=== PATIENT | male | born 1985 | race Caucasian/White ===

== ENCOUNTER 2017-09-27 13:08 | Emergency (ER) | payer SELFPAY ==
[2017-09-27 13:23] VITALS: RESP 16; TEMP 97
[2017-09-27] MEDS ORDERED: ALBUTEROL 3 ML DEYVIAL IH ONE (13:58)
[2017-09-27] MEDS ORDERED: IBUPROFEN 200 MG TAB PO ONE (13:58)
--- NOTE | 2017-09-27 14:05 | EDPHY ---
H & P Stated Complaint: SOB, CP and coughing since thsi morning Time Seen by Provider: 09/27/17 13:46 HPI/ROS: Chief Complaint: Cough, shortness of breath, chest pain HPI: 32-year-old male smoker with no significant medical history presenting after waking up today with pain when he coughs and mildly when he takes a deep breath. It is not exertional. Cough is dry and nonproductive. No fevers or chills. No recent ill exposures. No nausea or vomiting. Does have some associated mild shortness of breath. No family history of coronary artery disease. No recent travel. No leg pain or swelling. ROS: 10 point Review of Systems is negative except as noted in the HPI. PMH: Denies Social History: Positive smoking, positive alcohol, occasional marijuana Family History: non-contributory Physical Exam: Gen: Awake, Alert, No Distress HEENT: Nose: no rhinorrhea Eyes: PERRLA, EOMI Mouth: Moist mucosa Neck: Supple, no JVD Chest: nontender, mild diffuse expiratory wheeze, no focal rales or rhonchi Heart: S1, S2 normal, no murmur Abd: Soft, non-tender, no guarding Back: no CVA tenderness, no midline tenderness Ext: no edema, non-tender Skin: no rash Neuro: CN II-XII intact, Sensation grossly intact, Strength 5/5 in bilateral upper and lower extremities - Personal History Current Tetanus/Diphtheria Vaccine: Yes Current Tetanus Diphtheria and Acellular Pertussis (TDAP): Yes Tetanus Vaccine Date: 2017 - Medical/Surgical History Hx Asthma: No Hx Chronic Respiratory Disease: No Hx Diabetes: No Hx Cardiac Disease: Yes Hx Renal Disease: No Hx Cirrhosis: No Hx Alcoholism: No Hx HIV/AIDS: No Hx Splenectomy or Spleen Trauma: No Other PMH: [place] 4 years ago, doesn't know mif he has stents - Social History Smoking Status: Current every day smoker Constitutional: Initial Vital Signs Temperature (C) 36.1 C 09/27/17 13:08 Heart Rate 97 09/27/17 13:08 Respiratory Rate 16 09/27/17 13:08 Blood Pressure 142/88 H 09/27/17 13:08 O2 Sat (%) 94 09/27/17 13:08 O2 Delivery Mode Room Air Allergies/Adverse Reactions: No Known Allergies Allergy (Verified 09/27/17 13:19) Home Medications: Medication Instructions Recorded AZITHROMYCIN [Z-PACK] 250 mg PO DAILY #6 tab 09/27/17 Medical Decision Making - Diagnostics Imaging Results: Imaging Impressions Chest X-Ray 09/27/17 13:58 Impression: Central bronchitis, otherwise negative chest.. Imaging: I viewed and interpreted images myself ED Course/Re-evaluation: Patient is improved after albuterol neb and ibuprofen. He is not hypoxemic. He is not tachycardic. Chest x-ray consistent with bronchitis. Because he is a smoker his wheezing will start him on antibiotics. Albuterol inhaler cough. He will follow up as an outpatient. - Data Points Medications Given: Discontinued Medications Albuterol (Proventil Neb) 3 ml IH EDNOW ONE Stop: 09/27/17 13:59 Last Admin: 09/27/17 14:22 Dose: 3 ml Ibuprofen (Motrin) 400 mg PO EDNOW ONE Stop: 09/27/17 13:59 Last Admin: 09/27/17 14:22 Dose: 400 mg Departure - Departure Disposition: Home, Routine, Self-Care Clinical Impression: Acute bronchitis Condition: Good Instructions: Acute Bronchitis (ED), Bronchospasm (ED) Additional Instructions: You may use the albuterol inhaler 2 puffs every 4 hr. Always use a spacer when you use your inhaler. Alternate acetaminophen (1000 mg) with ibuprofen (400 mg) every 4 hours as needed for fevers, chills, aches or pains. Please take your full course of antibiotics. Follow up with primary care physician in 2 days for further evaluation. Return to the emergency department for increasing shortness of breath, worsening cough, or any other concerns. Referrals: Dayna Gould [place] [[facility] [place] - As per Instructions Prescriptions: AZITHROMYCIN [Z-PACK] 250 mg PO DAILY #6 tab
[2017-09-27] MEDS ORDERED: ATROPINE SULFATE 1 MG/10 ML SYR ONE (14:59)
[2017-09-27] MEDS ORDERED: AZITHROMYCIN 250 MG TAB PO ONE (15:59)
[2017-09-27] MEDS ORDERED: ALBUTEROL INH PREPACK MDI TAKEHOME ONE (15:59)
[2017-09-27 16:24] VITALS: BP 119/77; PULSE 100; O2SAT 96
== END 2017-09-27 16:23 | disposition home or self-care (01) ==
LOC: EDBD 13:08
DX: J20.9 Acute bronchitis, unspecified (principal); F17.200 Nicotine dependence, unspecified, uncomplicated; I25.2 Old myocardial infarction
CPT/HCPCS: J0461; J7613

== ENCOUNTER 2017-09-30 11:56 | Inpatient (IN) | payer MEDICAID ==
[2017-09-30] MEDS ORDERED: ACETAMINOPHEN 500 MG TAB ONE (12:30)
[2017-09-30] MEDS ORDERED: IPRATROPIUM/ALBUTEROL 3 ML DEYVIAL ONE (12:30)
[2017-09-30] MEDS ORDERED: IPRATROPIUM/ALBUTEROL 3 ML DEYVIAL IH ONE (12:46)
[2017-09-30] MEDS ORDERED: ACETAMINOPHEN 500 MG TAB PO ONE (12:46)
[2017-09-30 12:57] LABS: PLATELET COUNT 153 10^3/uL (150-400)
[2017-09-30] MEDS ORDERED: ALBUTEROL 3 ML DEYVIAL IH ONE (13:16)
[2017-09-30] MEDS ORDERED: methylPREDNISolone SOD SUCC 125 MG/2 ML VIAL IVP ONE (13:16)
--- NOTE | 2017-09-30 13:19 | EDPHY ---
H & P Stated Complaint: cough, sob & "lungs on fire" continue--recent pna dx has not taken doxy rx Time Seen by Provider: 09/30/17 12:52 HPI/ROS: CHIEF COMPLAINT: Cough, shortness of breath HISTORY OF PRESENT ILLNESS: The patient is a homeless 32 y/o male complaining of shortness of breath and cough for the last few days. He was evaluated here on 09/27/17 for the same symptoms and was diagnosed with pneumonia. He was discharged with a doxycycline script, but has not taken any doses yet. He has been using the albuterol inhaler "10 times per day to be able to breath." He has a productive cough with phlegm ranging between yellow, green, and clear in color. He also complains of pleuritic midthoracic back pain in a horizontal band across his back and pleuritic chest pain that feels "like my lungs are on fire" every time he breaths or coughs. He had an episode of diarrhea this morning, a mild sore throat, and reports a fever of 100.4F. He denies respiratory disease, cardiac disease, or blood clot history. No flu vaccination this season. No chills, palpitations, vomiting, diarrhea, urinary complaints, headache, lightheadedness, leg swelling. REVIEW OF SYSTEMS: Aside from elements discussed in the HPI, a comprehensive 10-point review of systems was reviewed and is negative. PAST MEDICAL HISTORY: Denies SOCIAL HISTORY: Stopped smoking a couple days ago, transient, unemployed. VITAL SIGNS: Reviewed by me. 89% on room air. GENERAL: Well-developed, well-nourished, resting comfortably in no respiratory distress. Malodorous. HEENT: Atraumatic. Eyes: No icterus, no injection. Mouth: moist mucous membranes. No erythema or lesions. Neck: supple with no adenopathy. LUNGS: Diminished breath sounds bilaterally, wheezy cough, no wheezes when breathing normally. No rhonchi or rales. CARDIAC: Regular rate and rhythm, no rubs, murmurs or gallops. ABDOMEN: Soft, nontender, nondistended, bowel sounds normal. BACK: No CVA tenderness. No midline tenderness. EXTREMITIES: No trauma. No edema. Range of motion is normal throughout. NEURO: Alert and oriented, grossly nonfocal. SKIN: Warm and dry, no rash. PSYCHIATRIC: Normal mentation, no agitation. Portions of this note were transcribed by a ophthalmic medical assistant. I personally performed a history, physical exam, medical decision making, and confirmed accuracy of information the transcribed note. - Personal History Current Tetanus/Diphtheria Vaccine: Unsure Current Tetanus Diphtheria and Acellular Pertussis (TDAP): Unsure Tetanus Vaccine Date: 2017 - Medical/Surgical History Hx Asthma: No Hx Chronic Respiratory Disease: No Hx Diabetes: No Hx Cardiac Disease: No Hx Renal Disease: No Hx Cirrhosis: No Hx Alcoholism: No Hx HIV/AIDS: No Hx Splenectomy or Spleen Trauma: No Other PMH: bronchitis/pna 10/01. otherwise denies pmh - Social History Smoking Status: Former smoker Constitutional: Initial Vital Signs Temperature (C) 37.3 C 09/30/17 12:12 Heart Rate 88 09/30/17 12:12 Respiratory Rate 18 09/30/17 12:12 Blood Pressure 102/72 09/30/17 12:12 O2 Sat (%) 89 L 09/30/17 12:12 O2 Delivery Mode Room Air O2 (L/minute) 2 Allergies/Adverse Reactions: promethazine [From Phenergan] Allergy (Verified 09/30/17 15:18) Unknown Home Medications: Medication Instructions Recorded Oseltamivir Phosphate [Tamiflu 75 75 mg PO BIDMEAL #7 cap 10/02/17 mg (*)] guaiFENesin [Mucinex 600 MG (*)] 600 mg PO BID #10 tab.er 10/02/17 predniSONE 40 mg PO DAILY #4 tablet 10/02/17 Medical Decision Making - Diagnostics Imaging Results: CXR: Impression: Interstitial pneumonitis consistent with viral infection. Results called to Dr. Sands. Dictated By: Misha Ruiz MD Imaging: I viewed and interpreted images myself ED Course/Re-evaluation: This is a 32 y/o male with recent diagnosis of pneumonia complaining of persistent cough, dyspnea, and pleuritic back pain. Breath sounds are diminished bilaterally with a wheezy cough. Presentation consistent with URI and possibly influenza. Plan for IV, labs, flu swab, chest x-ray, and symptom management. Duo neb, 30mg IV Toradol, 125mg IV Solumedrol, 1000mg PO Tylenol administered. Flu A positive. Chest x-ray: diffuse pneumonitis. Albuterol neb administered. Reassessed patient and discussed work up. He desaturated to 86% when taken off O2 during our discussion. Patient is currently homeless and has not had success managing symptoms out of the hospital. I recommended admission for hypoxemia and flu. Spoke with hospitalist service. Dr. Morrell accepts admission to Med-Surg. Differential Diagnosis: Differential diagnosis for the patient's symptoms complex was considered including but not limited to viral versus bacterial bronchitis, asthma, influenza, upper respiratory infection, lower respiratory infection,asthma exacerbation, and bronchospasm. - Data Points Laboratory Results: Laboratory Results 09/30/17 12:05 09/30/17 12:05 Medications Given: Discontinued Medications Acetaminophen (Tylenol) 1,000 mg PO EDNOW ONE Stop: 09/30/17 12:47 Last Admin: 09/30/17 12:46 Dose: Not Given Acetaminophen (Tylenol) 650 mg PO Q4HRS PRN PRN Reason: Pain, Mild/Fever, Can Take PO Stop: 03/29/18 15:01 Last Admin: 10/01/17 19:28 Dose: 650 mg Albuterol (Proventil Neb) 3 ml IH EDNOW ONE Stop: 09/30/17 13:17 Last Admin: 09/30/17 13:26 Dose: 3 ml Albuterol/Ipratropium (Duoneb) 3 ml IH EDNOW ONE Stop: 09/30/17 12:47 Last Admin: 09/30/17 12:50 Dose: 3 ml Guaifenesin (Mucinex) 600 mg PO BID ATA Stop: 03/29/18 20:59 Last Admin: 10/02/17 09:33 Dose: 600 mg Sodium Chloride (Ns) 1,000 mls @ 100 mls/hr IV CONT ATA Stop: 10/01/17 01:14 Last Admin: 09/30/17 15:28 Dose: 1,000 mls Ketorolac Tromethamine (Toradol) 30 mg IVP EDNOW ONE Stop: 09/30/17 13:37 Last Admin: 09/30/17 13:58 Dose: 30 mg Ketorolac Tromethamine (Toradol) 15 mg IVP Q6HRS PRN PRN Reason: Pain, Breakthrough Stop: 10/06/17 00:00 Last Admin: 10/01/17 19:28 Dose: 15 mg Methylprednisolone Sodium Succinate (Solu-Medrol) 125 mg IVP EDNOW ONE Stop: 09/30/17 13:17 Last Admin: 09/30/17 13:26 Dose: 125 mg Oseltamivir Phosphate (Tamiflu) 75 mg PO BIDMEAL [facility] Stop: 10/04/17 18:01 Last Admin: 09/30/17 15:27 Dose: 75 mg Oseltamivir Phosphate (Tamiflu) 75 mg PO BIDMEAL [facility] Stop: 10/04/17 18:01 Last Admin: 10/02/17 09:33 Dose: 75 mg Prednisone (Prednisone) 40 mg PO DAILY [facility] Stop: 03/30/18 08:59 Last Admin: 10/02/17 09:33 Dose: 40 mg Departure - Departure Disposition: [facility] Clinical Impression: Influenza A, Hypoxemia, Cough Condition: Good Report Scribed for: Anisa Sands Report Scribed by: Taniya Antunez Date of Report: 09/30/17 Time of Report: 13:19
[2017-09-30] MEDS ORDERED: KETOROLAC 30 MG/1 ML SDV IVP ONE (13:36)
[2017-09-30] MEDS ORDERED: ONDANSETRON 4 MG/2 ML VIAL IVP PRN (15:02)
[2017-09-30] MEDS ORDERED: GUAIFENESIN/DM 10 ML UDCUP PO PRN (15:02)
[2017-09-30] MEDS ORDERED: ONDANSETRON DISINTEGRATING 4 MG TAB PO PRN (15:02)
[2017-09-30] MEDS ORDERED: ALBUTEROL 3 ML DEYVIAL IH PRN (15:02)
[2017-09-30] MEDS ORDERED: OSELTAMIVIR PHOSPHATE 75 MG CAP PO SCH (15:09)
[2017-09-30] MEDS ORDERED: NS 1,000 ML IV SCH (15:15)
[2017-09-30] MEDS: ACETAMINOPHEN 325 MG TAB PO PRN (19:36)
[2017-09-30] MEDS: KETOROLAC 15 MG/1 ML SDV IVP PRN (19:37)
--- NOTE | 2017-09-30 22:03 | GHP ---
[f rep st] HISTORY AND PHYSICAL DATE OF ADMISSION: 09/30/2017 CHIEF COMPLAINT: Cough and shortness of breath. HISTORY OF PRESENT ILLNESS: The patient is a 32-year-old homeless male who presents to the emergency department with cough and shortness of breath. He reports subjective fevers. His symptoms started approximately 3 days ago, at which time he was evaluated in the emergency department and diagnosed with pneumonia. He was discharged with oral doxycycline, but he did not fill this prescription. He has been frequently using an albuterol inhaler, although this has not significantly improved his symptoms. He complains of productive cough with associated shortness of breath and burning in his lungs. In the emergency department, he had a positive influenza test, and he was mildly hypoxemic at 89% on room air. He is admitted to the hospital for further management. PAST MEDICAL HISTORY: Patient denies any past medical problems. MEDICATIONS: Doxycycline and albuterol recently prescribed. Otherwise, no chronic medications. FAMILY HISTORY: Reviewed and noncontributory. SOCIAL HISTORY: Patient is homeless. He was most recently in [place], [place] , and somehow wound up in [place], where he has been seeking homeless services and is currently staying at [facility]. He states he can sleep there at night, but cannot stay there during the daytime. He quit smoking 5 days ago. REVIEW OF SYSTEMS: A 10-point review of systems was performed and was negative except as per HPI. OBJECTIVE: VITAL SIGNS: Temperature is 36.8, blood pressure 120/73, heart rate 87, respiratory rate 18, he is 90% on room air. GENERAL: The patient is awake, alert, oriented, no acute distress. HEENT: Head is atraumatic, normocephalic. Pupils equal, round, and reactive to light. Extraocular muscles are intact. Oropharynx is clear. Mucous membranes are moist. NECK: Supple. There is no JVD. HEART: Regular rate and rhythm without murmur. LUNGS: Diffuse expiratory wheezes with decreased air exchange. ABDOMEN: Soft , nondistended, nontender. Normoactive bowel sounds. EXTREMITIES: Without cyanosis, clubbing or edema. NEUROLOGIC: Grossly nonfocal. LABORATORY DATA: CBC is normal. Basic metabolic panel is remarkable for chloride of 95; otherwise normal electrolytes, normal creatinine of 1.0. Nasal influenza A is positive. Chest x-ray is personally reviewed and interpreted. This reveals bilateral diffuse interstitial disease, likely consistent with viral etiology. ASSESSMENT/PLAN: The patient is a 32-year-old male, who is admitted to the hospital with mild hypoxemia secondary to influenza A. 1. Acute hypoxemic respiratory failure secondary to influenza A. The patient is currently 90% on room air. He will receive p.r.n. albuterol nebulizers. I will start him on Tamiflu, as well as oral prednisone for his wheezing component in addition to anti-tussives and an expectorant. I do not see any evidence of bacterial pneumonia and will defer antibiotics with continued observation. He has requested pain medications and will give Toradol and acetaminophen for his discomfort. 2. Code status. Patient is full code. DISPOSITION: Patient is admitted to observation status. If his oxygen saturations are improved tomorrow, he may be a candidate for discharge home. /[id number]/MODL MTDD
[2017-09-30] MEDS: OSELTAMIVIR PHOSPHATE 75 MG CAP PO SCH (22:12)
[2017-10-01] MEDS: guaiFENesin 600 MG TAB.ER PO SCH ×4 (00:13→19:28)
[2017-10-01] MEDS ORDERED: ENOXAPARIN 40 MG/0.4 ML SYR SC SCH (09:00)
[2017-10-01] MEDS: OSELTAMIVIR PHOSPHATE 75 MG CAP PO SCH ×2 (09:33→18:31)
[2017-10-01] MEDS: predniSONE 20 MG TAB PO SCH (09:33)
--- NOTE | 2017-10-01 12:01 | ASMTCASEMG ---
Living Arrangements What is your living Answers: Alone arrangement? Who do you live with? Type Of Residence What kind of residence do Answers: Homeless you live in? Discharge Plan Comments Coordination Status Comments Notes: Pt is a 32 y/o homeless man admitted for hypoxia and influenza A. Pt is originally from [place]. Pt has been staying at the [facility] long-term in [place]. Pt will most likely d/c without any needs today. No therapies ordered at this time. CM provided pt w/ a local bus voucher. CM available for changes. Plan: Independent Date Signed: 10/01/2017 12:00 PM Electronically Signed By:NELLI Gaspar
--- NOTE | 2017-10-01 16:53 | HOSPPROG ---
Hospitalist Progress Note Assessment/Plan: #Influenza A #Hypoxemia #Reactive Airway disease #Homelessness Plan: -change to inpatient -tamiflu -prednisone -IS -Mucinex Subjective: still SOB. + cough. Still needing supplemental O2. Objective: Vital Signs Temp Pulse Resp BP Pulse Ox 36.6 C 95 16 134/77 H 90 L 10/01/17 15:01 10/01/17 15:01 10/01/17 15:01 10/01/17 15:01 10/01/17 15:01 09/30/17 10/01/17 10/02/17 05:59 05:59 05:59 Intake Total 1650 Balance 1650 - Physical Exam Constitutional: no apparent distress Eyes: PERRL, EOMI Ears, Nose, Mouth, Throat: moist mucous membranes, hearing normal Cardiovascular: regular rate and rhythym, no murmur, rub, or gallop Respiratory: reduced air movement, expiratory wheeze Gastrointestinal: normoactive bowel sounds, soft, non-tender abdomen Genitourinary: no bladder fullness Skin: warm Musculoskeletal: No generalized weakness Neurologic: AAOx3 Psychiatric: interacting appropriately, not anxious, not encephalopathic Lymph, Heme, Immunologic: No petechiae ICD10 Worksheet Patient Problems: Problems Problem Status Onset Cough Acute Hypoxemia Acute Influenza A Acute
[2017-10-01] MEDS: KETOROLAC 15 MG/1 ML SDV IVP PRN (19:28)
[2017-10-01] MEDS: ACETAMINOPHEN 325 MG TAB PO PRN (19:28)
[2017-10-01 20:26] VITALS: RESP 18
[2017-10-02 08:20] VITALS: BP 137/70; PULSE 84; TEMP 98; O2SAT 92
[2017-10-02] MEDS: OSELTAMIVIR PHOSPHATE 75 MG CAP PO SCH (09:33)
[2017-10-02] MEDS: predniSONE 20 MG TAB PO SCH (09:33)
[2017-10-02] MEDS: guaiFENesin 600 MG TAB.ER PO SCH (09:33)
--- NOTE | 2017-10-02 12:53 | PDDCSUM ---
Discharge Summary Discharge Summary: The patient was admitted with hypoxemia and influenza A He has a hx of tobacco use he was found to also have reactive airway disease he was kept overnight and hypoxemia resolved he is being d/c on RA he will f/u with the [facility] Tamiflu and prednisone scripts were faxed to the [facility] clinic. He did not want to wait for paper scripts. DDX: #Influenza A #Hypoxemia #Reactive Airway disease #Homelessness Exam: NAD AAOX3 RRR MILD WHEEZE MEDS: SEE MED REC F/U: SEE PCP NEXT WEEK TOTAL TIME SPENT ON D/C IS 35 MINS INCLUDING COORDINATION WITH CHARGE NURSE
--- NOTE | 2017-10-02 13:48 | PDMN ---
Medical Necessity Medical necessity: change to IP; los>2mn for influenza, hypoxemia, RAD w/ ongoing cough and SOB; requires continued supplemental O2; comorbid homelessness ; per order and H&P 10/01/17,
--- NOTE | 2017-10-02 13:57 | ASDISCHSUM ---
Discharge Information Plan Status:Homeless/Long Term Medically Cleared to Leave:10/01/2017 Discharge Date:10/02/2017 10:55 AM CM D/C Disposition:Home, Routine, Self-Care ADT D/C Disposition:Home, Routine, Self-Care Projected Discharge Date:10/02/2017 12:00 AM Transportation at D/C: Discharge Delay Reason: Follow-Up Date:10/02/2017 12:00 AM Discharge Slot: Final Diagnosis: Placement Information Patient Contact Information Contact Name:MELVINNONE Relationship: Address: Home Phone: Work Phone: City: Alternate Phone: State/[place] Code: Email: Financial Information Financial Class: Primary Plan Desc:[employer] [place] Primary Plan Number:[id number] Secondary Plan Desc: Secondary Plan Number: Assessment Information [facility] Initial CM Assessment Living Arrangements What is your living Answers: Alone arrangement? Who do you live with? Type Of Residence What kind of residence do Answers: Homeless you live in? Discharge Plan Comments Coordination Status Comments Notes: Pt is a 32 y/o homeless man admitted for hypoxia and influenza A. Pt is originally from [place]. Pt has been staying at the [facility] in [place]. Pt will most likely d/c without any needs today. No therapies ordered at this time. CM provided pt w/ a local bus voucher. CM available for changes. Plan: Independent Date Signed: 10/01/2017 12:00 PM Electronically Signed By:NELLI Gaspar Intervention Information
== END 2017-10-02 10:55 | disposition home or self-care (01) | DRG 193 ==
LOC: EDUNIT# → F2W 15:17 → OBSVTOIN 10-01 16:50
PROVIDERS: ADMIT Hospitalist; ATTEND Hospitalist
DX: J10.1 Influenza due to other identified influenza virus with other respiratory manifestations (principal); J96.01 Acute respiratory failure with hypoxia; J45.909 Unspecified asthma, uncomplicated; Z59.0 Homelessness; Z87.891 Personal history of nicotine dependence
CPT/HCPCS: G0378; J1885; J2930; J7512; J7613

== ENCOUNTER 2017-10-15 10:42 | Emergency (ER) | payer MEDICAID ==
[2017-10-15 11:03] VITALS: RESP 16
--- NOTE | 2017-10-15 13:06 | EDPHY ---
HPI/HX/ROS/PE/MDM Narrative: CHIEF COMPLAINT: Back pain, vomiting HISTORY OF PRESENT ILLNESS: This patient is a homeless 32 year old male complaining of back pain secondary to a mechanical fall yesterday. He was recently evaluated by me in this emergency department and subsequently admitted for flu. He was discharged two weeks ago, 10/02/16. Yesterday, he slipped and fell on the ice, landing flat on his back because he had his hands in his pockets. He denies loss of consciousness. Today, he complains of generalized back pain and feels like his left shoulder blade is going numb. He had an episode of nausea and vomiting this morning but felt better after eating and these symptoms have now resolved. The patient denies fever. He feels fatigued and reports he has some residual cough symptoms and has been taking leftover prednisone from his admission. No fever, chills, chest pain, shortness of breath, palpitations, diarrhea, urinary complaints, headache, lightheadedness. REVIEW OF SYSTEMS: Aside from elements discussed in the HPI, a comprehensive 10-point review of systems was reviewed and is negative. PAST MEDICAL HISTORY: Bronchitis, pneumonia SOCIAL HISTORY: Transient. Unemployed. Daily tobacco use, trying to quit. Former marijuana use. Occasional alcohol use. VITAL SIGNS: Reviewed by me GENERAL: Well-developed, well-nourished, resting comfortably in no respiratory distress. HEENT: Atraumatic. Eyes: No icterus, no injection. Mouth: moist mucous membranes. No erythema or lesions. Neck: supple with no adenopathy. LUNGS: Mildly distant bilaterally, no wheezes, rhonchi or rales. CARDIAC: Regular rate and rhythm, no rubs, murmurs or gallops. ABDOMEN: Soft, nontender, nondistended, bowel sounds normal. BACK: Tenderness over trapezius muscle. Diffuse back pain with focal tenderness at lower lumber spine and mid- t-spine. EXTREMITIES: No trauma. No edema. Range of motion is normal throughout. NEURO: Alert and oriented, grossly nonfocal. SKIN: Warm and dry, no rash. PSYCHIATRIC: Normal mentation, no agitation. Portions of this note were transcribed by a medical field representative. I personally performed a history, physical exam, medical decision making, and confirmed accuracy of information the transcribed note. ED Course: 32 y/o male presents with diffuse back pain and left shoulders secondary to a fall on the ice yesterday. On my exam, there is an area to the left of T4-T5 numb with palpation. This sensation of numbness is also present with forward flexion of the shoulder. Tenderness over L5. No ecchymoses or abrasions. The patient declines IV at this time. Plan for x-ray of T-spine and L-spine. Plan to administer 600mg PO ibuprofen. 13:40 Reviewed x-rays. No acute osseous abnormalities to patient's scapula. Pending radiologist interpretation for T- and L-spine. 14:[address] Stratton, radiologist. Evidence of scoliosis. No evidence of t -spine or rib fractures. See full reports below. 14:11 Reassessed patient. He is resting comfortably. Discussed imaging results. Plan to discharge home in good condition with lidocaine patch, Tylenol/ ibuprofen instructions for symptom relief. Follow up and return precautions discussed. He is comfortable with this plan. MDM: Differential diagnosis for the patient's injury was considered including but not limited to contusion, abrasion, laceration, fracture, neurapraxia. - Data Points Imaging Results: Imaging Impressions Lumbar Spine X-Ray 10/15/17 13:04 Impression: 1. Mild dextroscoliosis mid lumbar spine. 2. Moderate degenerative disk disease at L5-S1. Thoracic Spine X-Ray 10/15/17 13:04 Impression: Normal thoracic spine series. Shoulder X-Ray 10/15/17 13:05 Impression: Normal left shoulder series. Imaging: Discussed imaging studies w/ on call pharmacy technician Radiologist, I viewed and interpreted images myself Medications Given: Discontinued Medications Ibuprofen (Motrin) 600 mg PO EDNOW ONE Stop: 10/15/17 13:10 Last Admin: 10/15/17 13:12 Dose: 600 mg Lidocaine (Lidoderm 5%) 1 ea TD EDNOW ONE Stop: 10/15/17 14:24 Last Admin: 10/15/17 15:04 Dose: 1 ea Lidocaine (Lidoderm 5%) 1 ea TD DAILY ATA Stop: 04/13/18 15:14 Last Admin: 10/15/17 15:06 Dose: 1 ea General Time Seen by Provider: 10/15/17 12:38 Initial Vital Signs: Initial Vital Signs Temperature (C) 36.4 C 10/15/17 11:00 Heart Rate 88 10/15/17 11:00 Respiratory Rate 16 10/15/17 11:00 Blood Pressure 122/93 H 10/15/17 11:00 O2 Sat (%) 96 10/15/17 11:00 O2 Delivery Mode Room Air Allergies/Adverse Reactions: promethazine [From Phenergan] Allergy (Verified 10/15/17 10:59) Unknown Home Medications: Medication Instructions Recorded Oseltamivir Phosphate [Tamiflu 75 75 mg PO BIDMEAL #7 cap 10/02/17 mg (*)] guaiFENesin [Mucinex 600 MG (*)] 600 mg PO BID #10 tab.er 10/02/17 predniSONE 40 mg PO DAILY #4 tablet 10/02/17 Departure - Departure Disposition: Home, Routine, Self-Care Clinical Impression: Lumbar back pain, Pain of left scapula Acute thoracic back pain Qualifiers: Back pain laterality: left Qualified Code(s): M54.6 - Pain in thoracic spine Condition: Good Instructions: Acute Low Back Pain (ED), Shoulder Pain (ED) Additional Instructions: Follow up with a primary care provider for further evaluation. Mainstay of therapy is rest, ice, and anti-inflammatory/pain medications. Use ibuprofen or Tylenol as directed below. Apply ice for 20-30 minutes every 2-3 hours for the next 48 hours. After 48 hours, a heating pad or hot tub may feel better. You may also apply lidocaine patches as directed as needed for pain relief. Return to the emergency department or seek care urgently if you have worsening pain, pain radiating into the legs, weakness, numbness or tingling, difficulties with bowel or bladder, or other concerns Adult Pain & Fever Control: We recommend Acetaminophen (Tylenol) and Ibuprofen (Motrin, Advil) for pain and fever control. When fever is high or pain severe, both drugs can be used at the same time, but at different intervals. Please note the time differences. Your dose is: Acetaminophen [650-1000]mg every 4 to 6 hours Ibuprofen [600]mg every [8] hours with food. Referrals: [facility],. [Clinic] - As per Instructions Report Scribed for: Anisa Sands Report Scribed by: Tomasa La Date of Report: 10/15/17 Time of Report: 13:52
[2017-10-15] MEDS ORDERED: IBUPROFEN 600 MG TAB PO ONE (13:09)
[2017-10-15] MEDS ORDERED: LIDOCAINE 5% 1 EA PATCH TD ONE ×2 (14:23→15:01)
[2017-10-15 15:12] VITALS: BP 131/77; PULSE 71; TEMP 98.6; O2SAT 95
[2017-10-15] MEDS ORDERED: LIDOCAINE 5% 1 EA PATCH TD SCH (15:15)
[2017-10-15] MEDS ORDERED: PATCH REMOVAL 1 EA PATCH TD SCH ×2 (21:00)
== END 2017-10-15 15:13 | disposition home or self-care (01) ==
DX: M54.5 Low back pain (principal); M54.6 Pain in thoracic spine; M25.512 Pain in left shoulder